=== PATIENT | male | born 1960 | race Caucasian/White ===

== ENCOUNTER 2016-05-22 09:54 | Day surgery (SDC) | payer OTHER ==
[~2016-05-22] VITALS: Ht 160 cm; Wt 66.8 kg
[2016-05-22] MEDS ORDERED: METFORMIN (10:46)
[2016-05-22] MEDS ORDERED: LISINOPRIL (10:46)
[2016-05-22] MEDS ORDERED: INSULIN (10:46)
[2016-05-22] MEDS ORDERED: SIMVASTATIN (10:46)
[2016-05-22 10:49] VITALS: Ht 160 cm; Wt 66.8 kg
[2016-05-22 11:37] VITALS: BP 113/70; PULSE 62; RESP 13
[2016-05-22] MEDS ORDERED: FENTAnyl 50 MCG/ML VIAL ONE (12:28)
[2016-05-22] MEDS ORDERED: MIDAZOLAM 1 MG/ML 2 ML INJ ONE ×2 (12:28)
[2016-05-22 12:37] VITALS: BP 111/64; PULSE 57; RESP 18
--- NOTE | 2016-05-23 05:12 | GILP ---
DATE OF PROCEDURE: 05/22/2016 NAME OF PROCEDURES: Colonoscopy and biopsy. SURGEON: Catherine Calzada MD PREOPERATIVE DIAGNOSIS: Screening colonoscopy. POSTOPERATIVE DIAGNOSES 1. Colonoscopy all the way to the cecum. 2. Two rectal polyps were removed using the biopsy forceps. 3. Internal hemorrhoids. INDICATION FOR THE PROCEDURE: Mr. Miky Spain is a 55-year-old male patient who was scheduled for screening colonoscopy. The procedure and possible complications are well explained to the patient, he understood and consen savanah to the procedure. DESCRIPTION OF PROCEDURE: Under the influence of fentanyl and Versed, the colonoscope was carefully introduced in the rectum and under direct vision, it was advanced all the way to the cecum. FINDINGS: The patient had 2 rectal polyps and they were removed using the biopsy forceps. He was n oted to have internal hemorrhoids. He tolerated the procedure very well and there was no complication from the procedure. At the end o f the procedure, he was awake with stable vital signs and he was discharged home to the care of his family. IMPRESSION: 1. Colonoscopy all the way to the cecum. 2. Two rectal polyps were removed using the biopsy forceps. 3. Internal hemorrhoids. PLAN: 1. Await histopathology report. 2. The timing for the next colonoscopy will be decided after reviewing the biopsy report. Dictated By: CATHERINE NEWELL/FABRICIO Conf#: [id number] DID#: [id number]
== END 2016-05-22 12:55 | disposition home or self-care (01) ==
LOC: GIL 09:54
PROVIDERS: ATTEND Internal Medicine Gastroenterology
DX: Z12.11 Encounter for screening for malignant neoplasm of colon (principal); K62.1 Rectal polyp; K64.8 Other hemorrhoids; I10 Essential (primary) hypertension; E11.9 Type 2 diabetes mellitus without complications
CPT/HCPCS: 45380; 82962; 88305; J2250; J3010; Z7610